=== PATIENT | male | born 1960 ===

== ENCOUNTER 2018-06-21 08:45 | Outpatient (CLI) | payer OTHER ==
[~2018-06-21 08:45] MED LIST: CIPROFLOXACIN750 MG PO; CLONAZEPAM1 MG PO; COZAAR50 MG PO; DOCUSATE SODIU100 MG PO; FLAGYL500MG PO; GABAPENTIN800 MG PO; LIPITOR40 MG PO; PERCOCET 10-3251 TAB PO; PERCOCET 5/3251 TAB PO; PRAVASTATIN SOD40 MG PO
== END 2018-06-21 08:53 | disposition home or self-care (01) ==
LOC: SONOGRAMA 08:45
DX: S46.021A Laceration of muscle(s) and tendon(s) of the rotator cuff of right shoulder, initial encounter (principal); S49.81XA Other specified injuries of right shoulder and upper arm, initial encounter; M77.11 Lateral epicondylitis, right elbow

== ENCOUNTER → 2018-11-29 10:09 | Outpatient (CLI) | payer OTHER | END | disposition home or self-care (01) | LOC: LAB 10:09 | DX: D58.9 Hereditary hemolytic anemia, unspecified (principal); Z01.818 Encounter for other preprocedural examination; I10 Essential (primary) hypertension; N39.0 Urinary tract infection, site not specified ==